=== PATIENT | female | born 1980 | race Caucasian/White ===

== ENCOUNTER 2019-08-29 18:20 | Emergency (ER) | payer MEDICAID ==
--- NOTE | 2019-08-29 19:16 | ER Document Report ---
HPI - HPI Time Seen by Provider: 08/29/19 18:50 Pain Level: 3 Notes: Patient presents to ED with complaints of cough, chest congestion, hoarseness and sore throat for the last week. Denies fevers, nausea, vomiting or diarrhea. Has been taking nccg-iqt-ngckcid medicines for her symptoms without relief. - REPRODUCTIVE Reproductive: DENIES: : Past Medical History - General Information source: Patient - Social History Smoking Status: Current Every Day Smoker Chew tobacco use (# tins/day): No Frequency of alcohol use: None Drug Abuse: None Family History: Reviewed & Not Pertinent Patient has suicidal ideation: No Patient has homicidal ideation: No - Medical History Medical History: Negative Surgical Hx: Negative - Immunizations Immunizations up to date: Yes Vertical Provider Document - CONSTITUTIONAL Notes: PHYSICAL EXAMINATION: GENERAL: Well-appearing, well-nourished and in no acute distress. HEAD: Atraumatic, normocephalic. EYES: Pupils equal round extraocular movements intact, conjunctiva are normal. ENT: Nares patent with clear rhinorrhea in the posterior oropharynx, no tonsillar swelling, exudates or abnormality noted. Bilateral TMs unremarkable. Congested cough noted. NECK: Normal range of motion, no cervical lymphadenopathy. LUNGS: No respiratory distress, lung sounds clear and equal bilaterally. Musculoskeletal: Normal range of motion NEUROLOGICAL: Normal speech, normal gait. PSYCH: Normal mood, normal affect. SKIN: Warm, Dry, normal turgor, no rashes or lesions noted. - INFECTION CONTROL TRAVEL OUTSIDE OF THE [place] IN LAST 30 DAYS: No Course - Re-evaluation Re-evalutation: Examination benign. Patient symptoms most consistent with viral upper respiratory infection. Patient will be prescribed medications for symptomatic relief. This was discussed with the patient and the patient verbalizes understanding and agreement with this plan. ED return precautions discussed. - Vital Signs Vital signs: Temp Pulse Resp BP Pulse Ox 97.9 F 95 16 181/98 H 96 08/29/19 18:27 08/29/19 18:27 08/29/19 18:27 08/29/19 18:27 08/29/19 18:27 Discharge - Discharge Clinical Impression: Upper respiratory infection Qualifiers: URI type: unspecified viral URI Qualified Code(s): J06.9 - Acute upper respiratory infection, unspecified Hypertension Qualifiers: Hypertension type: unspecified Qualified Code(s): I10 - Essential (primary) hypertension Condition: Stable Disposition: HOME, SELF-CARE Additional Instructions: Your symptoms are most likely due to a viral infection it should resolve over the next 7-14 days. You should take jgld-[id number]-exzhthf guanfacine per bottle instructions to help thin the mucus. For nasal congestion: I would recommend that you get ighm-vvz-nojbtlw oxymetazoline also known is afrin. Take medications as prescribed. Use only per bottle instructions and be sure to never use this for more than 3 days if you can develop severe rebound congestion. You may also use tylenol or ibuprofen as needed for aches and thorat discomfort. Please be sure to drink plenty of fluids and get rest. Return to the emergency department he began having difficulty breathing, chest pain, persistent vomiting, or any other symptoms that are concerning to you. Prescriptions: Codeine Phosphate/Guaifenesin [Cheratussin AC Syrup] 10 ml PO QHS #120 ml Benzonatate [Tessalon Perles 100 mg Capsule] 100 mg PO Q8HP PRN #30 capsule PRN Reason: Prednisone [Deltasone 20 mg Tablet] 3 tab PO DAILY 5 Days #15 tablet Referrals: CHLOE GREEN MD [Primary Care Provider] - Follow up as needed
[2019-08-29 19:31] VITALS: BP 172/89
== END 2019-08-29 19:24 | disposition home or self-care (01) ==
LOC: ER 18:20
DX: J06.9 Acute upper respiratory infection, unspecified (principal); R09.89 Other specified symptoms and signs involving the circulatory and respiratory systems; F17.200 Nicotine dependence, unspecified, uncomplicated; I10 Essential (primary) hypertension
CPT/HCPCS: 99283